=== PATIENT | female | born 1935 | race Two or more races ===

== ENCOUNTER 2022-10-23 09:19 | Emergency (ER) | payer OTHER ==
[~2022-10-23] VITALS: Ht 165.1 cm; Wt 59.0 kg
== END 2022-10-23 15:50 | disposition home or self-care (01) ==
LOC: ER 09:19
DX: R42 Dizziness and giddiness (principal); Z88.0 Allergy status to penicillin
CPT/HCPCS: 36415; 70450; 93005; 96365; 96366; 99284; J7030

== ENCOUNTER 2023-09-22 19:24 | Inpatient (IN) | payer OTHER ==
[~2023-09-22] VITALS: Ht 149.9 cm; Wt 54.4 kg
[2023-09-22] MEDS ORDERED: GLIMEPIRIDE1 M1 PO (20:01)
[2023-09-22] MEDS ORDERED: INDAPAMIDE1.25 MG PO (20:02)
[2023-09-22] MEDS ORDERED: FOLIC ACID20 MG PO (20:02)
[2023-09-22] MEDS ORDERED: PANTOPRAZOLE SO40 MG PO (20:02)
[2023-09-22] MEDS ORDERED: TOPROL XL25 M1 PO (20:02)
[2023-09-22] MEDS ORDERED: SIMVASTATIN80 MG PO (20:02)
[2023-09-22] MEDS ORDERED: ESCITALOPRAM OXA5 MG PO (20:03)
[2023-09-22] MEDS ORDERED: RESTORIL15 M1 PO (20:03)
[2023-09-22] MEDS ORDERED: ELIQUIS2.5 MG PO (20:03)
[2023-09-22] MEDS ORDERED: BUSPIRONE HCL7.5 MG PO (20:03)
[2023-09-22] MEDS ORDERED: 0.9 % SODIUM CHLORIDE 500 ML IV ONE (20:15)
[2023-09-22] MEDS ORDERED: FAMOtidine 10 MG/ML (4ML VIAL) IV ONE (20:15)
[2023-09-22 20:45] LABS: HEMATOCRIT 35.6 % (36.0-45.00); HEMOGLOBIN 11.3 g/dL (12.0-15.00); MEAN CELL VOLUME 78.7 fL (80.00-100.00); MEAN CORPUSCULAR HGB CONC 31.8 g/dl (32.0-36.0); RED BLOOD COUNT 4.53 M/uL (4.00-6.00); RED CELL DISTRIBUTION WIDTH 15.9 % (11.5-14.5)
[2023-09-22 20:48] LABS: PLATELET COUNT 130 K/uL (150-450)
[2023-09-22 21:30] LABS: ALBUMIN 4.1 gm/dL (3.4-5.0); BILIRUBIN TOTAL 0.6 mg/dL (0.3-1.2); CREATININE SERUM 1.04 mg/dL (0.55-1.02); GFR 50.13; GLOBULINA 3.4 G/DL (2.4-3.5); POTASSIUM 3.99 mEq/L (3.5-5.1); TOTAL PROTEIN 7.5 gm/dL (6.4-8.2)
[2023-09-22] MEDS ORDERED: ONDANSETRON HCL 2 MG/ML VIAL IV ONE (22:15)
[2023-09-23] MEDS ORDERED: CIPROFLOXACIN IN 5 % DEXTROSE 200 ML IV SCH (00:03)
[2023-09-23] MEDS ORDERED: FAMOTIDINE/PF 20 MG in 0.9 % SODIUM CHLORIDE 8 ML IV PUSH SCH (00:03)
[2023-09-23] MEDS ORDERED: ACETAMINOPHEN 500 MG GEL..CAP PO PRN (00:15)
[2023-09-23] MEDS ORDERED: 0.9 % SODIUM CHLORIDE 1,000 ML IV SCH (00:15)
[2023-09-23] MEDS ORDERED: ONDANSETRON HCL 4 MG in 0.9 % SODIUM CHLORIDE 50 ML IV PRN (00:15)
[2023-09-23 00:36] LABS: PH,URINE 5.5 (5.0-8.0); URINE APPEARANCE Clear; URINE BILIRRUBIN Negative (NEGATIVE); URINE BLOOD Negative; URINE COLOR Yellow; URINE GLUCOSE Negative (NEGATIVE); URINE LEUKOCYTE Negative; URINE NITRATE Negative; URINE PROTEIN Trace (NEGATIVE); URINE UROBILINOGEN 0.2 E.U./dl
[2023-09-23 00:41] LABS: URINE BACTERIA 56.6 uL (0.0-1933); URINE RBC 7.3 uL (0.0-20.8)
[2023-09-23 00:43] LABS: URINE WBC 1.2 uL (0.0-23.2)
[2023-09-23] MEDS ORDERED: METRONIDAZOLE/SODIUM CHLORIDE 100 ML IV SCH (01:00)
[2023-09-23 03:00] LABS: INR 1.14; PARTIAL THROMBOPLASTIN TIME 26.5 SECONDS (22.0-34.0); PROTHROMBIN TIME 11.9 SECONDS (9.0-11.5)
[2023-09-23] MEDS ORDERED: LACTOBACILLUS ACIDOPHILUS 1 CAP CAP PO SCH (09:00)
[2023-09-23] MEDS ORDERED: ATORVASTATIN CALCIUM 40 MG TABLET PO SCH (09:00)
[2023-09-23] MEDS ORDERED: ENOXAPARIN SODIUM 40 MG/0.4 ML SYRINGE SUBCUTANEO SCH (09:00)
[2023-09-24 10:30] LABS: HEMATOCRIT 33.5 % (36.0-45.00); HEMOGLOBIN 10.8 g/dL (12.0-15.00); MEAN CELL VOLUME 79.4 fL (80.00-100.00); MEAN CORPUSCULAR HEMOGLOBIN 25.5 pg (27.00-32.0); MEAN CORPUSCULAR HGB CONC 32.1 g/dl (32.0-36.0); PLATELET COUNT 130 K/uL (150-450); RED BLOOD COUNT 4.22 M/uL (4.00-6.00); RED CELL DISTRIBUTION WIDTH 16.1 % (11.5-14.5)
[2023-09-24 11:08] LABS: ALBUMIN 3.1 gm/dL (3.4-5.0); BILIRUBIN TOTAL 0.48 mg/dL (0.3-1.2); CALCIUM 7.6 mg/dL (8.5-10.1); CREATININE SERUM 0.83 mg/dL (0.55-1.02); GFR 65.03; GLOBULINA 3.2 G/DL (2.4-3.5); MAGNESIUM 1.9 mg/dL (1.8-2.4); POTASSIUM 3.1 mEq/L (3.5-5.1); TOTAL PROTEIN 6.3 gm/dL (6.4-8.2)
[2023-09-24 11:37] LABS: C-REACTIVE PROTEIN 5.21 MG/DL (0.00-0.29); PHOSPHOROUS 1.7 mg/dL (2.5-4.9)
[2023-09-24 13:59] LABS: PROCALCITONIN 0.426 ng/ml (0.020-0.080)
[2023-09-24 14:00] LABS: CORTISOL 15.77 ug/dl
[2023-09-24] MEDS ORDERED: POTASSIUM PHOS,M-BASIC-D-BASIC 3 MM/ML VIAL IV SCH (18:00)
[2023-09-26] MEDS ORDERED: HALOPERIDOL LACTATE 5 MG/ML AMPUL IM STA (11:03)
[2023-09-26] MEDS ORDERED: DIPHENHYDRAMINE HCL 50 MG/ML VIAL 1ML IM STA (11:04)
== END 2023-09-26 19:07 | disposition home or self-care (01) | DRG 312 ==
LOC: ER 19:24 → SEC-K 09-23 00:08 → MEDI 09-23 00:08 → SEC-K 09-23 16:43 → MEDI 09-24 10:23
PROVIDERS: General Practice; ADMIT Internal Medicine; ATTEND Internal Medicine
PROC: B020ZZZ Computerized Tomography (CT Scan) of Brain (ICD-10-PCS; principal; 2023-09-23)
PROC: BW21ZZZ Computerized Tomography (CT Scan) of Abdomen and Pelvis (ICD-10-PCS; 2023-09-23)
PROC: B345ZZZ Ultrasonography of Bilateral Common Carotid Arteries (ICD-10-PCS; 2023-09-23)
PROC: B348ZZZ Ultrasonography of Bilateral Internal Carotid Arteries (ICD-10-PCS; 2023-09-23)
PROC: B246ZZZ Ultrasonography of Right and Left Heart (ICD-10-PCS; 2023-09-23)
PROC: 4A12X4Z Monitoring of Cardiac Electrical Activity, External Approach (ICD-10-PCS; 2023-09-24)
DX: I95.1 Orthostatic hypotension (principal); N39.0 Urinary tract infection, site not specified; R65.10 Systemic inflammatory response syndrome (SIRS) of non-infectious origin without acute organ dysfunction; A09 Infectious gastroenteritis and colitis, unspecified; K57.30 Diverticulosis of large intestine without perforation or abscess without bleeding; I10 Essential (primary) hypertension; F03.90 Unspecified dementia, unspecified severity, without behavioral disturbance, psychotic disturbance, mood disturbance, and anxiety; B96.20 Unspecified Escherichia coli [E. coli] as the cause of diseases classified elsewhere

== ENCOUNTER 2023-12-11 18:45 | Inpatient (IN) | payer OTHER ==
[~2023-12-11] VITALS: Ht 157.5 cm; Wt 63.5 kg
[~2023-12-11 18:45] MED LIST: BUSPIRONE HCL7.5 MG PO; ELIQUIS2.5 MG PO; ESCITALOPRAM OXA5 MG PO; FOLIC ACID20 MG PO; GLIMEPIRIDE1 M1 PO; INDAPAMIDE1.25 MG PO; PANTOPRAZOLE SO40 MG PO; RESTORIL15 M1 PO; SIMVASTATIN80 MG PO; TOPROL XL25 M1 PO
[2023-12-11] MEDS ORDERED: 0.9 % SODIUM CHLORIDE 1,000 ML IV ONE (19:00)
[2023-12-11 19:27] LABS: MEAN CELL VOLUME 71.3 fL (80.00-100.00); MEAN CORPUSCULAR HGB CONC 31.2 g/dl (32.0-36.0); PLATELET COUNT 172 K/uL (150-450); RED BLOOD COUNT 2.41 M/uL (4.00-6.00); RED CELL DISTRIBUTION WIDTH 16.7 % (11.5-14.5)
[2023-12-11 19:33] LABS: INR 1.17; PARTIAL THROMBOPLASTIN TIME 23.3 SECONDS (22.0-34.0); PROTHROMBIN TIME 12.6 SECONDS (9.0-11.5)
[2023-12-11 19:34] LABS: HEMATOCRIT 17.2 % (36.0-45.00); MEAN CORPUSCULAR HEMOGLOBIN 22.4 pg (27.00-32.0)
[2023-12-11 19:36] LABS: HEMOGLOBIN 5.4 g/dL (12.0-15.00)
[2023-12-11 19:38] LABS: ALBUMIN 3.5 gm/dL (3.4-5.0); BILIRUBIN TOTAL 0.35 mg/dL (0.3-1.2); CALCIUM 9.1 mg/dL (8.5-10.1); CREATININE SERUM 0.96 mg/dL (0.55-1.02); GFR 54.98; GLOBULINA 3.8 G/DL (2.4-3.5); POTASSIUM 3.53 mEq/L (3.5-5.1); TOTAL PROTEIN 7.3 gm/dL (6.4-8.2)
[2023-12-11 19:45] LABS: ABG PH 7.469 (7.35-7.45); ABG PO2 75.3 mmHg (80-100); ABG pCO2 40.6 mmHg (35-45); BASE EXCESS 4.8 mmol/l; BICARBONATE 28.8 mmol/l (23-25); Tco2 30.1 mmol/l
[2023-12-11 19:59] LABS: o2 21 %
[2023-12-11 20:00] LABS: allen test SATISFACTORY; puncture site RADIAL RIGHT
[2023-12-11] MEDS ORDERED: DIPHENHYDRAMINE HCL 50 MG/ML VIAL 1ML IV PRN (20:45)
[2023-12-11] MEDS ORDERED: FUROsemide 20 MG/2 ML VIAL IV SCH (20:45)
[2023-12-11] MEDS ORDERED: DEXTROSE 50 % IN WATER 0.5 G/ML DISP.SYRIN IV PRN (20:45)
[2023-12-11] MEDS ORDERED: METHYLPREDNISOLONE SOD SUCC 40 MG VIAL IV PRN (20:45)
[2023-12-11] MEDS ORDERED: INSULIN LISPRO 1,000 UNIT/10 ML UNITS SUBCUTANEO PRN (20:45)
[2023-12-11] MEDS ORDERED: 0.9 % SODIUM CHLORIDE 1,000 ML IV SCH (20:45)
[2023-12-11] MEDS ORDERED: GABAPENTIN 300 MG CAPSULE PO SCH (20:48)
[2023-12-11] MEDS ORDERED: SUCRALFATE 1 G TABLET PO SCH (20:50)
[2023-12-11] MEDS ORDERED: SENNA/DOCUSATE SODIUM 1 TAB TABLET PO SCH (21:00)
[2023-12-11] MEDS ORDERED: ENALAPRILAT DIHYDRATE 1.25 MG/ML VIAL IV PRN (21:00)
[2023-12-11] MEDS ORDERED: ONDANSETRON HCL 4 MG in 0.9 % SODIUM CHLORIDE 50 ML IV PRN (21:00)
[2023-12-11 21:55] LABS: URINE APPEARANCE Clear; URINE BILIRRUBIN Negative (NEGATIVE); URINE BLOOD Negative; URINE COLOR Yellow; URINE GLUCOSE Negative (NEGATIVE); URINE KETONE Negative (NEGATIVE); URINE LEUKOCYTE Trace; URINE NITRATE Negative; URINE PROTEIN Negative (NEGATIVE); URINE UROBILINOGEN 0.2 E.U./dl
[2023-12-11 21:59] LABS: URINE BACTERIA 3464.5 uL (0.0-1933); URINE EPITHELIAL CELLS 11.8 uL (0.0-38.8); URINE WBC 30.7 uL (0.0-23.2)
[2023-12-11 22:01] LABS: URINE RBC 0.7 uL (0.0-20.8)
[2023-12-11 22:50] VITALS: BP 114/74
[2023-12-11 23:02] VITALS: BP 114/78; O2SAT 97
[2023-12-12 01:13] VITALS: BP 122/60; O2SAT 98
[2023-12-12] MEDS ORDERED: LEVOTHYROXINE SODIUM 88 MCG TABLET PO SCH (06:00)
[2023-12-12 06:42] LABS: INR 1.15; PARTIAL THROMBOPLASTIN TIME 24.5 SECONDS (22.0-34.0); PROTHROMBIN TIME 12.4 SECONDS (9.0-11.5)
[2023-12-12 07:36] LABS: MEAN CELL VOLUME 71.4 fL (80.00-100.00); MEAN CORPUSCULAR HGB CONC 31.7 g/dl (32.0-36.0); PLATELET COUNT 166 K/uL (150-450); RED BLOOD COUNT 2.38 M/uL (4.00-6.00); RED CELL DISTRIBUTION WIDTH 16.7 % (11.5-14.5)
[2023-12-12 08:04] LABS: ALBUMIN 3.4 gm/dL (3.4-5.0); ALKALINE PHOSPHATASE 34 U/L (50-136); ALT/SGPT 12 U/L (12-78); ANION GAP 7 (10.0-20.0); AST/SGOT 12 U/L (15-37); BILIRUBIN TOTAL 0.42 mg/dL (0.3-1.2); BILIRUBIN,CONJUGATED 0.15 mg/dL (0.0-0.2); BILIRUBIN,UNCONJUGATED 0.27 mg/dL (0.0-0.6); BLOOD UREA NITROGEN 21 mg/dL (7-18); BUN CREA RATIO 26 (7.0-25.0); CALCIUM 8.9 mg/dL (8.5-10.1); CARBON DIOXIDE 31 mEq/L (21-32); CHLORIDE 106 mmol/L (98-107); CHOL HDL RATIO 1.9 (0-5.0); CHOLESTEROL 102 mg/dL (0-200); GFR 67.85; GLOBULINA 3.2 G/DL (2.4-3.5); GLUCOSE FASTING 144 mg/dL (65-100); HDL 54 mg/dl (40-60); HEMOGLOBIN 5.4 g/dL (12.0-15.00); LDL 39 mg/dl (0-130); MEAN CORPUSCULAR HEMOGLOBIN 22.6 pg (27.00-32.0); OSMOLALITY SERUM 287 MOSM/KG (275-295); POTASSIUM 3.44 mEq/L (3.5-5.1); SODIUM 141 mmol/L (136-145); TOTAL IRON BINDING CAPACITY 432 ug/dl (250-450); TOTAL PROTEIN 6.6 gm/dL (6.4-8.2); TRIGLYCERIDES 46 mg/dL (0-150); VLDL 9 (0-39)
[2023-12-12 08:05] LABS: C-REACTIVE PROTEIN < 0.29 MG/DL (0.00-0.29); ERYTHROCYTE SEDIMENTATION RATE 55 mm/hr
[2023-12-12 08:26] VITALS: BP 113/53; O2SAT 99
[2023-12-12] MEDS ORDERED: ACETAMINOPHEN PO SCH (09:00)
[2023-12-12] MEDS ORDERED: METOPROLOL SUCCINATE 25 MG TAB.SR.24H PO SCH (09:00)
[2023-12-12] MEDS ORDERED: INDAPAMIDE 1.25 MG TABLET PO SCH (09:00)
[2023-12-12] MEDS ORDERED: FOLIC ACID 1 MG TABLET PO SCH (09:00)
[2023-12-12] MEDS ORDERED: VITAMIN B COMPLEX 1 EACH PO SCH (09:00)
[2023-12-12] MEDS ORDERED: APIXABAN 2.5 MG TABLET PO SCH (09:00)
[2023-12-12] MEDS ORDERED: PANTOPRAZOLE SODIUM 40 MG TABLET.DR PO SCH (09:00)
[2023-12-12 15:20] VITALS: BP 126/60; O2SAT 100
[2023-12-12] MEDS ORDERED: SIMVASTATIN 40 MG TABLET PO SCH (17:00)
[2023-12-12] MEDS ORDERED: ACETAMINOPHEN 650 MG PO SCH (17:00)
[2023-12-12] MEDS ORDERED: SOD FERRIC GLUC COMPLX/SUCROSE 125 MG in 0.9 % SODIUM CHLORIDE 100 ML IV SCH (17:00)
[2023-12-12 17:09] LABS: PH,URINE 5.5 (5.0-8.0); URINE APPEARANCE Clear; URINE BILIRRUBIN Negative (NEGATIVE); URINE BLOOD Trace; URINE COLOR Dark Yellow; URINE GLUCOSE Negative (NEGATIVE); URINE KETONE Negative (NEGATIVE); URINE LEUKOCYTE Small; URINE NITRATE Negative; URINE PROTEIN Negative (NEGATIVE); URINE UROBILINOGEN 0.2 E.U./dl
[2023-12-12 17:12] LABS: URINE EPITHELIAL CELLS 3.7 uL (0.0-38.8); URINE WBC 45.2 uL (0.0-23.2)
[2023-12-12 17:21] VITALS: BP 119/69
[2023-12-12 17:27] LABS: URINE BACTERIA > 9821.5 uL (0.0-1933); URINE CAST 1.06 uL (0.0-1.40)
[2023-12-12 21:23] VITALS: BP 109/59
[2023-12-13 02:27] VITALS: BP 119/52
[2023-12-13 08:27] VITALS: BP 110/60; O2SAT 98
[2023-12-13 09:52] LABS: HEMATOCRIT 24.8 % (36.0-45.00); MEAN CELL VOLUME 75.8 fL (80.00-100.00); MEAN CORPUSCULAR HGB CONC 32.1 g/dl (32.0-36.0); PLATELET COUNT 159 K/uL (150-450); RED BLOOD COUNT 3.27 M/uL (4.00-6.00); RED CELL DISTRIBUTION WIDTH 18.3 % (11.5-14.5)
[2023-12-13 09:53] LABS: MEAN CORPUSCULAR HEMOGLOBIN 24.4 pg (27.00-32.0)
[2023-12-13 17:39] VITALS: BP 156/86
[2023-12-13] MEDS ORDERED: TEMAZEPAM 15 MG CAPSULE PO SCH (21:00)
[2023-12-14 02:50] VITALS: BP 108/60; O2SAT 94
[2023-12-14 08:07] VITALS: BP 113/59
[2023-12-14 08:40] LABS: PLATELET ESTIMATE NORMAL (NORMAL)
[2023-12-14 08:53] LABS: FOLIC ACID > 20.00 ng/ml (4.78-20)
[2023-12-14] MEDS ORDERED: FUROsemide 20 MG/2 ML VIAL IV SCH (11:30)
[2023-12-14 17:00] VITALS: BP 134/70
[2023-12-14 21:54] VITALS: BP 118/47
[2023-12-15 00:42] VITALS: BP 130/64; O2SAT 98
[2023-12-15 08:02] VITALS: BP 111/82
[2023-12-15 15:12] LABS: ALBUMIN 3.4 gm/dL (3.4-5.0); BILIRUBIN TOTAL 1.89 mg/dL (0.3-1.2); CALCIUM 9.1 mg/dL (8.5-10.1); CREATININE SERUM 0.88 mg/dL (0.55-1.02); FERRITIN 170.3 NG/ML (8-252); GFR 60.78; GLOBULINA 3.5 G/DL (2.4-3.5); MAGNESIUM 1.8 mg/dL (1.8-2.4); PHOSPHOROUS 3.8 mg/dL (2.5-4.9); POTASSIUM 3.86 mEq/L (3.5-5.1); TOTAL PROTEIN 6.9 gm/dL (6.4-8.2)
[2023-12-15 15:40] VITALS: BP 160/75; O2SAT 94
[2023-12-15] MEDS ORDERED: LORazepam 2 MG/ML VIAL IV PUSH PRN (17:30)
[2023-12-16] VITALS: BP 158/73; O2SAT 94
[2023-12-16 04:25] VITALS: BP 148/78
[2023-12-16 08:21] VITALS: BP 153/74
[2023-12-16 10:59] LABS: FOLIC ACID > 20.00 ng/ml (4.78-20)
[2023-12-16 12:01] LABS: HEMATOCRIT 38.4 % (36.0-45.00); HEMOGLOBIN 12.8 g/dL (12.0-15.00); MEAN CELL VOLUME 80.5 fL (80.00-100.00); MEAN CORPUSCULAR HEMOGLOBIN 26.9 pg (27.00-32.0); MEAN CORPUSCULAR HGB CONC 33.3 g/dl (32.0-36.0); PLATELET COUNT 200 K/uL (150-450); RED BLOOD COUNT 4.77 M/uL (4.00-6.00); RED CELL DISTRIBUTION WIDTH 20.5 % (11.5-14.5)
[2023-12-16 17:18] VITALS: BP 111/66; O2SAT 95
== END 2023-12-16 20:23 | disposition home or self-care (01) | DRG 812 ==
LOC: ER 18:45 → MEDI 21:11
PROVIDERS: General Practice; Internal Medicine; ADMIT Internal Medicine; ATTEND Internal Medicine
PROC: 30233N1 Transfusion of Nonautologous Red Blood Cells into Peripheral Vein, Percutaneous Approach (ICD-10-PCS; principal; 2023-12-12)
PROC: 4A12X4Z Monitoring of Cardiac Electrical Activity, External Approach (ICD-10-PCS; 2023-12-13)
DX: D50.0 Iron deficiency anemia secondary to blood loss (chronic) (principal); D64.89 Other specified anemias; E11.9 Type 2 diabetes mellitus without complications; R42 Dizziness and giddiness; I10 Essential (primary) hypertension; E03.9 Hypothyroidism, unspecified; Z88.0 Allergy status to penicillin; Z91.013 Allergy to seafood; G30.8 Other Alzheimer's disease; F02.80 Dementia in other diseases classified elsewhere, unspecified severity, without behavioral disturbance, psychotic disturbance, mood disturbance, and anxiety